=== PATIENT | female | born 1990 | race Caucasian/White ===

== ENCOUNTER 2022-08-02 22:27 | Emergency (ER) | payer OTHER, SELFPAY ==
[~2022-08-02 22:27] MED LIST: Iopamidol 370 76% 100 ML VIAL ONE
[2022-08-02] MEDS ORDERED: Sodium Chloride 0.9% 1,000 ML ONE (23:07)
[2022-08-02] MEDS ORDERED: Acetaminophen 500 MG TAB ONE (23:07)
[2022-08-02] MEDS ORDERED: Dexamethasone 20 MG/5 ML VIAL ONE (23:07)
[2022-08-02] MEDS ORDERED: Clindamycin 150 MG CAP ONE (23:07)
[2022-08-02 23:16] LABS: #Basophils 0.1 thou/uL (0.0-0.2); #Eosinphils 0.1 thou/uL (0.0-0.7); #Lymphocytes 1.1 thou/uL (1.20-3.40); #Monocytes 0.4 thou/uL (0.11-0.59); #Neutrophils 9.1 thou/uL (1.40-6.50); %Basophils 0.6 % (0.0-1.0); %Eosinophils 0.6 % (0.0-10.0); %Lymphocytes 10.1 % (21.0-51.0); %Monocytes 3.8 % (0.0-10.0); %Neutrophils 84.9 % (42.0-75.0); Hemoglobin 13.9 g/dL (12.0-16.0); Mean Corpuscular Hemoglobin 30.2 pg (27.0-31.0); Mean Corpuscular Volume 91.5 fl (78.0-98.0); Mean Platelet Volume 8.5 fL (7.4-10.4); Platelet Count 223 10x3/uL (130-400); Red Blood Cell (RBC) Count 4.61 mill/uL (4.20-5.40); White Blood Cell (WBC) Count 10.7 10x3/uL (4.8-10.8)
[2022-08-02 23:18] LABS: BHCG - Serum Negative (NEGATIVE); Pregs Control Bar Appear? YES (CONTROL BAR)
[2022-08-02 23:25] LABS: Anion Gap 11 mmol/L (10-20); BUN (Urea Nitrogen) 14 mg/dL (7.0-18.7); Calc. Creatinine Clearance 0 mL/min (70-130); Calcium 9.1 mg/dL (7.8-10.44); Carbon Dioxide 22 mmol/L (22-29); Chloride 107 mmol/L (98-107); Estimated GFR 90; Glucose 111 mg/dL (70-105); Potassium 3.4 mmol/L (3.5-5.1); Sodium 137 mmol/L (136-145)
[2022-08-02] MEDS ORDERED: Ibuprofen 800 MG TAB ONE (23:53)
[2022-08-03 21:50] LABS: MONO NEGATIVE CONTROL ZONE White (Negative) (White); MONO POSITIVE CONTROL Pink Line (Positive) (PINK/RED); Mononucleosis NEGATIVE (NEGATIVE)
== END 2022-08-03 00:38 | disposition home or self-care (01) ==
LOC: NAV ERS 22:27
DX: J02.9 Acute pharyngitis, unspecified (principal); F17.210 Nicotine dependence, cigarettes, uncomplicated; Z20.822 Contact with and (suspected) exposure to COVID-19
CPT/HCPCS: 70492; 80048; 84703; 85025; 86308; 87081; 87430; 87804; 96374; J1100; J7050; Q9967; U0003; U0005